=== PATIENT | female | born 2000 | race Caucasian/White ===

== ENCOUNTER 2023-12-06 14:47 | Outpatient (CLI) | payer OTHER, SELFPAY ==
[2023-12-06 15:54] LABS: Beta HCG Quantitative < 2.39 mIU/ML
== END 2023-12-06 14:48 | disposition home or self-care (01) ==
LOC: ANHLAB 14:49
PROVIDERS: PCP Emergency Medicine; Visit Provider Student in an Organized Health Care Education/Training Program
DX: N92.6 Irregular menstruation, unspecified (principal)
CPT/HCPCS: 36415; 84702